=== PATIENT | male | born 1995 | race Caucasian/White ===

== ENCOUNTER 2024-07-27 17:09 | Emergency (ER) | payer OTHER ==
[~2024-07-27] VITALS: Ht 177.8 cm; Wt 88.5 kg
[2024-07-27 17:21] VITALS: BP_SYST 134; PULSE 100; RESP 18; TEMP 97.6; O2SAT 96
[2024-07-27] MEDS: KETOROLAC TROMETHAMINE 60 MG/2 ML VIAL IM ONE (19:20)
[2024-07-27] MEDS: carisoprodoL 350 MG TABLET PO ONE (19:26)
[2024-07-27] MEDS ORDERED: SOM350 PO (19:57)
[2024-07-27] MEDS ORDERED: LIDO1ADH22 TP (19:57)
[2024-07-27] MEDS ORDERED: IBUP-1971 PO (19:57)
[2024-07-27 20:08] VITALS: BP_SYST 132; PULSE 95; RESP 18; TEMP 97.6; O2SAT 96
== END 2024-07-27 20:08 | disposition home or self-care (01) ==
LOC: SED 17:09
DX: S39.012A Strain of muscle, fascia and tendon of lower back, initial encounter (principal); X50.1XXA Overexertion from prolonged static or awkward postures, initial encounter; Y93.89 Activity, other specified; Y92.89 Other specified places as the place of occurrence of the external cause; Y99.8 Other external cause status
CPT/HCPCS: 99283; 96372; J1885

== ENCOUNTER 2024-07-30 08:38 | Emergency (ER) | payer OTHER ==
[~2024-07-30] VITALS: Ht 177.8 cm; Wt 88.5 kg
[~2024-07-30 08:38] MED LIST: IBUP-1971 PO; LIDO1ADH22 TP; SOM350 PO
[2024-07-30 08:40] VITALS: BP_SYST 144; PULSE 87; RESP 18; TEMP 97.8; O2SAT 97
[2024-07-30] MEDS: predniSONE 20 MG TABLET PO ONE (09:18)
[2024-07-30] MEDS ORDERED: PRED20TA PO (09:28)
== END 2024-07-30 09:41 | disposition home or self-care (01) ==
LOC: SED 08:38
DX: S39.012A Strain of muscle, fascia and tendon of lower back, initial encounter (principal); Z79.899 Other long term (current) drug therapy; Z79.2 Long term (current) use of antibiotics; X50.9XXA Other and unspecified overexertion or strenuous movements or postures, initial encounter; Y93.89 Activity, other specified; Y92.89 Other specified places as the place of occurrence of the external cause; Y99.8 Other external cause status
CPT/HCPCS: 99283; J7512